=== PATIENT | male | born 1990 | race Caucasian/White ===

== ENCOUNTER 2019-06-17 13:06 | Emergency (ER) | payer OTHER ==
[2019-06-17 13:34] VITALS: BP 121/74
--- NOTE | 2019-06-17 13:58 | UC ---
Skin Complaint HPI - HPI Summary HPI Summary: 29-year-old male presents with onset of a painful, red, lesions to the back of his right earlobe yesterday. 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 Denies fever or chills. - History of Current Complaint Chief Complaint: UCEar Time Seen by Provider: 06/17/19 13:35 Stated Complaint: RIGHT EAR SKIN CONCERN Hx Obtained From: Patient Pain Intensity: 0 - Allergy/Home Medications Allergies/Adverse Reactions: Allergies Allergy/AdvReac Type Severity Reaction Status Date / Time bananas Allergy Intermediate Hives Uncoded 06/17/19 13:35 PMH/Surg Hx/FS Hx/Imm Hx Previously Healthy: Yes - Denies significant PMH - Surgical History Surgical History: None - Family History Known Family History: Positive: Non-Contributory - Social History Occupation: Employed Full-time Alcohol Use: Occasionally Substance Use Type: Cocaine, Marijuana Substance Use Comment - Amount & Last Used: occasional Smoking Status (MU): Never Smoked Tobacco - Immunization History Most Recent Influenza Vaccination: no Review of Systems All Other Systems Reviewed And Are Negative: Yes Constitutional: Negative: Fever, Chills Skin: Positive: Other - See HPI ENT: Positive: Negative Respiratory: Positive: Negative Cardiovascular: Positive: Negative Gastrointestinal: Positive: Negative Genitourinary: Positive: Negative Musculoskeletal: Positive: Negative Neurological: Positive: Negative Is Patient Immunocompromised?: No Physical Exam - Summary Physical Exam Summary: GENERAL APPEARANCE: Well developed, well nourished, alert and cooperative, and appears to be in no acute distress. EARS: Tender, raised, papular lesion to the back of the lobule of his right earlobe with some erythema of the surrounding tissue. No fluctuance, drainage, or edema of the ear lobe is noted. External auditory canals and tympanic membranes clear, hearing grossly intact. NECK: Neck supple, non-tender without lymphadenopathy. CARDIAC: Normal S1 and S2. No S3, S4 or murmurs. Rhythm is regular. There is no peripheral edema, cyanosis or pallor. Extremities are warm and well perfused. Capillary refill is less than 2 seconds. Peripheral pulses intact. LUNGS: Clear to auscultation without rales, rhonchi, wheezing or diminished breath sounds. ABDOMEN: Positive bowel sounds. Soft, nondistended, nontender. No guarding or rebound. No masses or hepatosplenomegally. MUSKULOSKELETAL: ROM intact to all extremities. No joint erythema or tenderness. Normal muscular development. Normal gait. SKIN: Skin normal color, texture and turgor. Triage Information Reviewed: Yes Vital Signs: Initial Vital Signs Temp 98.6 F 06/17/19 13:30 Pulse 77 06/17/19 13:30 Resp 16 06/17/19 13:30 BP 121/74 06/17/19 13:30 Pulse Ox 99 06/17/19 13:30 Vital Signs Reviewed: Yes Course/Dx - Course Course Of Treatment: 29-year-old male presents with onset of a painful, red, lesions to the back of his right earlobe yesterday. 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 Denies fever or chills. Afebrile. Vital signs stable. Patient a tender, raised, papular lesion to the back of the lobule of his right earlobe with some erythema of the surrounding tissue. No fluctuance, drainage, or edema of the ear lobe is noted. We'll treat the patient for an infection of the ear up with cephalexin 500 mg 3 times a day 5 days. Recommending that he do hot compresses to the affected area. He is to follow-up with his primary care provider in 3-5 days if symptoms do not improve. Anticipatory guidance and warning symptoms are reviewed with patient. Verbalizes understanding and agrees with plan of care. - Differential Diagnoses - Skin Complaint Differential Diagnoses: Abscess, Cellulitis, MRSA - Diagnoses Provider Diagnosis: Infection of right ear lobe Discharge - Sign-Out/Discharge Documenting (check all that apply): Patient Departure All imaging exams completed and their final reports reviewed: No Studies - Discharge Plan Condition: Stable Disposition: HOME Prescriptions: cephALEXin [Keflex] 500 mg PO TID #15 capsule Referrals: Renetta Richardson MD [Primary Care Provider] - 3 Days Additional Instructions: You appear to have a mild infection of the right ear lobe. We will start you on an antibiotic to treat the infection. Take cephalexin (Keflex) 500 mg 1 capsule 3 times a day for 5 days. Apply a hot moist compress to the affected area at least 4 times a day. Follow up with you primary care provider in 3-5 days if symptoms do not improve. Seek immediate medical attention in the emergency room if you develop fever greater than 100.5 F, have increased redness or swelling of the ear lobe, have severe pain, or any worsening of symptoms. - Billing Disposition and Condition Condition: STABLE Disposition: Home - Attestation Statements Provider Attestation: Per institutional requirements, I have reviewed the chart, however, I was not consulted specifically or made aware of this patient by the midlevel provider. I did not personally evaluate, interact with , or disposition this patient.
== END 2019-06-17 14:02 | disposition home or self-care (01) ==
LOC: UCCORT 13:06
DX: L08.9 Local infection of the skin and subcutaneous tissue, unspecified (principal)
CPT/HCPCS: 99202; G0463